=== PATIENT | female | born 1935 | race Hispanic/Latino ===

== ENCOUNTER 2016-03-03 10:25 | Outpatient (CLI) | payer MEDICARE ==
[2016-03-03] MEDS ORDERED: XYLOCAINE TOPICAL 4% TP ONE ×2 (10:45→15:21)
== END 2016-03-03 10:26 | disposition home or self-care (01) ==
LOC: WOUND 10:25
PROVIDERS: ATTEND Orthopaedic Surgery
DX: I70.248 Atherosclerosis of native arteries of left leg with ulceration of other part of lower leg (principal); L97.821 Non-pressure chronic ulcer of other part of left lower leg limited to breakdown of skin; B95.62 Methicillin resistant Staphylococcus aureus infection as the cause of diseases classified elsewhere; I10 Essential (primary) hypertension; I25.2 Old myocardial infarction; J43.9 Emphysema, unspecified

== ENCOUNTER 2016-03-17 10:47 | Outpatient (CLI) | payer MEDICARE ==
[~2016-03-17 10:47] MED LIST: XYLOCAINE TOPICAL 2% ONE
[2016-03-17] MEDS ORDERED: XYLOCAINE TOPICAL 2% TP ONE (12:20)
== END 2016-03-17 10:48 | disposition home or self-care (01) ==
LOC: WOUND 10:47
PROVIDERS: ATTEND Orthopaedic Surgery
DX: I70.248 Atherosclerosis of native arteries of left leg with ulceration of other part of lower leg (principal); L97.821 Non-pressure chronic ulcer of other part of left lower leg limited to breakdown of skin; B35.1 Tinea unguium; I25.2 Old myocardial infarction; I10 Essential (primary) hypertension; I73.9 Peripheral vascular disease, unspecified; J43.9 Emphysema, unspecified

== ENCOUNTER 2016-04-21 10:31 | Outpatient (CLI) | payer MEDICARE ==
[2016-04-21] MEDS ORDERED: XYLOCAINE TOPICAL 4% TP ONE ×2 (10:34→11:09)
== END 2016-04-21 10:32 | disposition home or self-care (01) ==
LOC: WOUND 10:31
PROVIDERS: ATTEND Internal Medicine
DX: I70.248 Atherosclerosis of native arteries of left leg with ulceration of other part of lower leg (principal); L97.822 Non-pressure chronic ulcer of other part of left lower leg with fat layer exposed; L89.622 Pressure ulcer of left heel, stage 2; B35.1 Tinea unguium; I10 Essential (primary) hypertension; K21.0 Gastro-esophageal reflux disease with esophagitis; I20.8 Other forms of angina pectoris; I73.9 Peripheral vascular disease, unspecified; I25.2 Old myocardial infarction; J43.9 Emphysema, unspecified; G62.9 Polyneuropathy, unspecified

== ENCOUNTER 2016-04-28 10:25 | Outpatient (CLI) | payer MEDICARE ==
[2016-04-28] MEDS ORDERED: XYLOCAINE TOPICAL 4% TP ONE ×2 (10:30→11:06)
== END 2016-04-28 10:26 | disposition home or self-care (01) ==
LOC: WOUND 10:25
PROVIDERS: ATTEND Internal Medicine
DX: I87.312 Chronic venous hypertension (idiopathic) with ulcer of left lower extremity (principal); I70.248 Atherosclerosis of native arteries of left leg with ulceration of other part of lower leg; L97.822 Non-pressure chronic ulcer of other part of left lower leg with fat layer exposed; I70.238 Atherosclerosis of native arteries of right leg with ulceration of other part of lower leg; L97.812 Non-pressure chronic ulcer of other part of right lower leg with fat layer exposed; L89.622 Pressure ulcer of left heel, stage 2; B35.1 Tinea unguium; K21.0 Gastro-esophageal reflux disease with esophagitis; I73.9 Peripheral vascular disease, unspecified; I25.2 Old myocardial infarction; J43.9 Emphysema, unspecified; G62.9 Polyneuropathy, unspecified
CPT/HCPCS: 11055

== ENCOUNTER 2016-05-12 10:20 | Outpatient (CLI) | payer MEDICARE ==
[2016-05-12] MEDS ORDERED: XYLOCAINE TOPICAL 4% TP ONE ×2 (10:34→12:00)
== END 2016-05-12 10:21 | disposition home or self-care (01) ==
LOC: WOUND 10:20
PROVIDERS: ATTEND Internal Medicine
DX: I87.312 Chronic venous hypertension (idiopathic) with ulcer of left lower extremity (principal); I70.203 Unspecified atherosclerosis of native arteries of extremities, bilateral legs; L97.822 Non-pressure chronic ulcer of other part of left lower leg with fat layer exposed; K21.0 Gastro-esophageal reflux disease with esophagitis; I20.8 Other forms of angina pectoris; B35.1 Tinea unguium; I73.9 Peripheral vascular disease, unspecified; I25.2 Old myocardial infarction; J43.9 Emphysema, unspecified; G62.9 Polyneuropathy, unspecified

== ENCOUNTER 2016-05-26 10:30 | Outpatient (CLI) | payer MEDICARE ==
[2016-05-26] MEDS ORDERED: XYLOCAINE TOPICAL 4% TP ONE ×2 (10:56→11:30)
== END 2016-05-26 10:31 | disposition home or self-care (01) ==
LOC: WOUND 10:30
PROVIDERS: ATTEND Podiatrist
DX: I87.312 Chronic venous hypertension (idiopathic) with ulcer of left lower extremity (principal); L97.821 Non-pressure chronic ulcer of other part of left lower leg limited to breakdown of skin; I70.203 Unspecified atherosclerosis of native arteries of extremities, bilateral legs; L89.622 Pressure ulcer of left heel, stage 2; I10 Essential (primary) hypertension; I20.8 Other forms of angina pectoris; K21.0 Gastro-esophageal reflux disease with esophagitis; I73.9 Peripheral vascular disease, unspecified; I25.2 Old myocardial infarction; J43.9 Emphysema, unspecified
CPT/HCPCS: 11042; G0463

== ENCOUNTER 2016-06-09 10:14 | Outpatient (CLI) | payer MEDICARE ==
[2016-06-09] MEDS ORDERED: XYLOCAINE TOPICAL 2% ONE (10:25)
[2016-06-09] MEDS ORDERED: XYLOCAINE TOPICAL 2% TP ONE (15:02)
== END 2016-06-09 10:15 | disposition home or self-care (01) ==
LOC: WOUND 10:14
PROVIDERS: ATTEND Internal Medicine
DX: I87.312 Chronic venous hypertension (idiopathic) with ulcer of left lower extremity (principal); I70.203 Unspecified atherosclerosis of native arteries of extremities, bilateral legs; L97.822 Non-pressure chronic ulcer of other part of left lower leg with fat layer exposed; I28.0 Arteriovenous fistula of pulmonary vessels; K21.0 Gastro-esophageal reflux disease with esophagitis; I73.9 Peripheral vascular disease, unspecified; I25.2 Old myocardial infarction; J43.9 Emphysema, unspecified; G62.9 Polyneuropathy, unspecified
CPT/HCPCS: C5271; Q4102

== ENCOUNTER 2016-06-16 10:20 | Outpatient (CLI) | payer MEDICARE ==
[2016-06-16] MEDS ORDERED: XYLOCAINE TOPICAL 4% TP ONE ×2 (10:46→11:57)
== END 2016-06-16 10:21 | disposition home or self-care (01) ==
LOC: WOUND 10:20
PROVIDERS: ATTEND Internal Medicine
DX: I87.312 Chronic venous hypertension (idiopathic) with ulcer of left lower extremity (principal); L97.821 Non-pressure chronic ulcer of other part of left lower leg limited to breakdown of skin; L89.622 Pressure ulcer of left heel, stage 2; I70.203 Unspecified atherosclerosis of native arteries of extremities, bilateral legs; I20.8 Other forms of angina pectoris; K21.0 Gastro-esophageal reflux disease with esophagitis; I73.9 Peripheral vascular disease, unspecified; I25.2 Old myocardial infarction; J43.9 Emphysema, unspecified

== ENCOUNTER 2016-06-23 10:20 | Outpatient (CLI) | payer MEDICARE ==
[2016-06-23] MEDS ORDERED: XYLOCAINE TOPICAL 4% TP ONE ×2 (10:22→12:28)
== END 2016-06-23 10:21 | disposition home or self-care (01) ==
LOC: WOUND 10:20
PROVIDERS: ATTEND Surgery
DX: I87.2 Venous insufficiency (chronic) (peripheral) (principal); L89.622 Pressure ulcer of left heel, stage 2; I87.312 Chronic venous hypertension (idiopathic) with ulcer of left lower extremity; L97.822 Non-pressure chronic ulcer of other part of left lower leg with fat layer exposed; L89.892 Pressure ulcer of other site, stage 2; I70.203 Unspecified atherosclerosis of native arteries of extremities, bilateral legs; I73.9 Peripheral vascular disease, unspecified; I25.2 Old myocardial infarction; J43.9 Emphysema, unspecified; K21.9 Gastro-esophageal reflux disease without esophagitis; G62.9 Polyneuropathy, unspecified
CPT/HCPCS: 97597

== ENCOUNTER 2016-06-30 10:24 | Outpatient (CLI) | payer MEDICARE ==
[2016-06-30] MEDS ORDERED: XYLOCAINE TOPICAL 4% TP ONE ×2 (10:36→16:22)
== END 2016-06-30 10:25 | disposition home or self-care (01) ==
LOC: WOUND 10:24
PROVIDERS: ATTEND Surgery
DX: L89.622 Pressure ulcer of left heel, stage 2 (principal); I87.2 Venous insufficiency (chronic) (peripheral); I87.312 Chronic venous hypertension (idiopathic) with ulcer of left lower extremity; L97.822 Non-pressure chronic ulcer of other part of left lower leg with fat layer exposed; I70.203 Unspecified atherosclerosis of native arteries of extremities, bilateral legs; I73.9 Peripheral vascular disease, unspecified; I25.2 Old myocardial infarction; J43.9 Emphysema, unspecified; G62.9 Polyneuropathy, unspecified; K21.9 Gastro-esophageal reflux disease without esophagitis
CPT/HCPCS: 97597

== ENCOUNTER 2016-07-07 10:23 | Outpatient (CLI) | payer MEDICARE ==
[2016-07-07] MEDS ORDERED: XYLOCAINE TOPICAL 4% TP ONE ×2 (10:27→14:25)
== END 2016-07-07 10:24 | disposition home or self-care (01) ==
LOC: WOUND 10:23
PROVIDERS: ATTEND Internal Medicine
DX: I87.312 Chronic venous hypertension (idiopathic) with ulcer of left lower extremity (principal); L97.822 Non-pressure chronic ulcer of other part of left lower leg with fat layer exposed; I70.203 Unspecified atherosclerosis of native arteries of extremities, bilateral legs; K21.0 Gastro-esophageal reflux disease with esophagitis; I20.8 Other forms of angina pectoris; I73.9 Peripheral vascular disease, unspecified; I25.2 Old myocardial infarction; J43.9 Emphysema, unspecified; G62.9 Polyneuropathy, unspecified

== ENCOUNTER 2016-07-14 10:32 | Outpatient (CLI) | payer MEDICARE ==
[2016-07-14] MEDS ORDERED: XYLOCAINE TOPICAL 4% TP ONE ×2 (10:46→12:00)
== END 2016-07-14 10:33 | disposition home or self-care (01) ==
LOC: WOUND 10:32
PROVIDERS: ATTEND Surgery
DX: I87.312 Chronic venous hypertension (idiopathic) with ulcer of left lower extremity (principal); L97.822 Non-pressure chronic ulcer of other part of left lower leg with fat layer exposed; I70.203 Unspecified atherosclerosis of native arteries of extremities, bilateral legs; I73.9 Peripheral vascular disease, unspecified; I25.2 Old myocardial infarction; J43.9 Emphysema, unspecified; G62.9 Polyneuropathy, unspecified; K21.9 Gastro-esophageal reflux disease without esophagitis

== ENCOUNTER 2016-07-21 10:31 | Outpatient (CLI) | payer MEDICARE ==
[2016-07-21] MEDS ORDERED: XYLOCAINE TOPICAL 4% TP ONE ×2 (10:53→11:00)
== END 2016-07-21 10:32 | disposition home or self-care (01) ==
LOC: WOUND 10:31
PROVIDERS: ATTEND Surgery
DX: I87.312 Chronic venous hypertension (idiopathic) with ulcer of left lower extremity (principal); L97.822 Non-pressure chronic ulcer of other part of left lower leg with fat layer exposed; I70.203 Unspecified atherosclerosis of native arteries of extremities, bilateral legs; I73.9 Peripheral vascular disease, unspecified; I25.2 Old myocardial infarction; J43.9 Emphysema, unspecified; G62.9 Polyneuropathy, unspecified; K21.9 Gastro-esophageal reflux disease without esophagitis

== ENCOUNTER 2016-07-28 10:35 | Outpatient (CLI) | payer MEDICARE ==
[2016-07-28] MEDS ORDERED: XYLOCAINE TOPICAL 4% TP ONE ×2 (10:58→11:07)
== END 2016-07-28 10:36 | disposition home or self-care (01) ==
LOC: WOUND 10:35
PROVIDERS: ATTEND Surgery
DX: I87.312 Chronic venous hypertension (idiopathic) with ulcer of left lower extremity (principal); L97.822 Non-pressure chronic ulcer of other part of left lower leg with fat layer exposed; I70.203 Unspecified atherosclerosis of native arteries of extremities, bilateral legs; I73.9 Peripheral vascular disease, unspecified; I10 Essential (primary) hypertension; I25.2 Old myocardial infarction; J43.9 Emphysema, unspecified; G62.9 Polyneuropathy, unspecified; K21.9 Gastro-esophageal reflux disease without esophagitis
CPT/HCPCS: 29580

== ENCOUNTER 2016-08-04 10:30 | Outpatient (CLI) | payer MEDICARE ==
[2016-08-04] MEDS ORDERED: XYLOCAINE TOPICAL 4% TP ONE ×2 (11:27→15:28)
== END 2016-08-04 10:31 | disposition home or self-care (01) ==
LOC: WOUND 10:30
PROVIDERS: ATTEND Surgery
DX: I87.312 Chronic venous hypertension (idiopathic) with ulcer of left lower extremity (principal); L97.822 Non-pressure chronic ulcer of other part of left lower leg with fat layer exposed; I70.203 Unspecified atherosclerosis of native arteries of extremities, bilateral legs; I73.9 Peripheral vascular disease, unspecified; I25.2 Old myocardial infarction; J43.9 Emphysema, unspecified; G62.9 Polyneuropathy, unspecified; K21.9 Gastro-esophageal reflux disease without esophagitis

== ENCOUNTER 2016-08-18 10:28 | Outpatient (CLI) | payer MEDICARE ==
[2016-08-18] MEDS ORDERED: XYLOCAINE TOPICAL 4% TP ONE (10:38)
== END 2016-08-18 10:29 | disposition home or self-care (01) ==
LOC: WOUND 10:28
PROVIDERS: ATTEND Surgery
DX: I87.312 Chronic venous hypertension (idiopathic) with ulcer of left lower extremity (principal); L97.822 Non-pressure chronic ulcer of other part of left lower leg with fat layer exposed; I70.203 Unspecified atherosclerosis of native arteries of extremities, bilateral legs; E11.51 Type 2 diabetes mellitus with diabetic peripheral angiopathy without gangrene; E11.40 Type 2 diabetes mellitus with diabetic neuropathy, unspecified; I25.2 Old myocardial infarction; J43.9 Emphysema, unspecified; K21.9 Gastro-esophageal reflux disease without esophagitis

== ENCOUNTER 2016-08-25 10:31 | Outpatient (CLI) | payer MEDICARE ==
[2016-08-25] MEDS ORDERED: XYLOCAINE TOPICAL 4% TP ONE (10:58)
== END 2016-08-25 10:32 | disposition home or self-care (01) ==
LOC: WOUND 10:31
PROVIDERS: ATTEND Surgery
DX: I87.312 Chronic venous hypertension (idiopathic) with ulcer of left lower extremity (principal); I70.203 Unspecified atherosclerosis of native arteries of extremities, bilateral legs; L97.822 Non-pressure chronic ulcer of other part of left lower leg with fat layer exposed; I73.9 Peripheral vascular disease, unspecified; I25.2 Old myocardial infarction; J43.9 Emphysema, unspecified; G62.9 Polyneuropathy, unspecified; K21.9 Gastro-esophageal reflux disease without esophagitis; Z90.710 Acquired absence of both cervix and uterus

== ENCOUNTER 2016-09-01 10:14 | Outpatient (CLI) | payer MEDICARE ==
[2016-09-01] MEDS ORDERED: XYLOCAINE TOPICAL 4% TP ONE ×2 (10:51→16:42)
== END 2016-09-01 10:15 | disposition home or self-care (01) ==
LOC: WOUND 10:14
PROVIDERS: ATTEND Surgery
DX: I87.312 Chronic venous hypertension (idiopathic) with ulcer of left lower extremity (principal); L97.822 Non-pressure chronic ulcer of other part of left lower leg with fat layer exposed; I70.203 Unspecified atherosclerosis of native arteries of extremities, bilateral legs; I73.9 Peripheral vascular disease, unspecified; J43.9 Emphysema, unspecified; K21.9 Gastro-esophageal reflux disease without esophagitis; G62.9 Polyneuropathy, unspecified; I25.2 Old myocardial infarction; Z90.710 Acquired absence of both cervix and uterus

== ENCOUNTER 2016-09-08 10:16 | Outpatient (CLI) | payer MEDICARE ==
[2016-09-08] MEDS ORDERED: XYLOCAINE TOPICAL 4% TP ONE ×2 (10:37→16:25)
== END 2016-09-08 10:17 | disposition home or self-care (01) ==
LOC: WOUND 10:16
PROVIDERS: ATTEND Surgery
DX: I87.312 Chronic venous hypertension (idiopathic) with ulcer of left lower extremity (principal); L97.822 Non-pressure chronic ulcer of other part of left lower leg with fat layer exposed; I73.9 Peripheral vascular disease, unspecified; I10 Essential (primary) hypertension; I25.2 Old myocardial infarction; J43.9 Emphysema, unspecified; G62.9 Polyneuropathy, unspecified; K21.9 Gastro-esophageal reflux disease without esophagitis; L97.521 Non-pressure chronic ulcer of other part of left foot limited to breakdown of skin; Z90.710 Acquired absence of both cervix and uterus

== ENCOUNTER 2016-09-15 10:14 | Outpatient (CLI) | payer MEDICARE ==
[2016-09-15] MEDS ORDERED: XYLOCAINE TOPICAL 4% TP ONE ×2 (10:42→11:00)
== END 2016-09-15 10:15 | disposition home or self-care (01) ==
LOC: WOUND 10:14
PROVIDERS: ATTEND Surgery
DX: I87.312 Chronic venous hypertension (idiopathic) with ulcer of left lower extremity (principal); L97.822 Non-pressure chronic ulcer of other part of left lower leg with fat layer exposed; I73.9 Peripheral vascular disease, unspecified; J43.9 Emphysema, unspecified; G62.9 Polyneuropathy, unspecified; K21.9 Gastro-esophageal reflux disease without esophagitis; Z90.710 Acquired absence of both cervix and uterus

== ENCOUNTER 2016-09-22 10:18 | Outpatient (CLI) | payer MEDICARE ==
[2016-09-22] MEDS ORDERED: XYLOCAINE TOPICAL 4% TP ONE ×2 (10:45→16:00)
[2016-09-22] MEDS ORDERED: SILVER NITRATE TP ONE ×2 (11:25→16:00)
== END 2016-09-22 10:19 | disposition home or self-care (01) ==
LOC: WOUND 10:18
PROVIDERS: ATTEND Surgery
DX: I87.312 Chronic venous hypertension (idiopathic) with ulcer of left lower extremity (principal); L97.822 Non-pressure chronic ulcer of other part of left lower leg with fat layer exposed; I70.203 Unspecified atherosclerosis of native arteries of extremities, bilateral legs; I73.9 Peripheral vascular disease, unspecified; I10 Essential (primary) hypertension; I25.2 Old myocardial infarction; J43.9 Emphysema, unspecified; G62.9 Polyneuropathy, unspecified; K21.9 Gastro-esophageal reflux disease without esophagitis; Z90.710 Acquired absence of both cervix and uterus

== ENCOUNTER 2016-09-29 10:25 | Outpatient (CLI) | payer MEDICARE ==
[2016-09-29] MEDS ORDERED: XYLOCAINE TOPICAL 4% TP ONE (10:30)
== END 2016-09-29 10:26 | disposition home or self-care (01) ==
LOC: WOUND 10:25
PROVIDERS: ATTEND Surgery
DX: I87.312 Chronic venous hypertension (idiopathic) with ulcer of left lower extremity (principal); L97.822 Non-pressure chronic ulcer of other part of left lower leg with fat layer exposed; L97.521 Non-pressure chronic ulcer of other part of left foot limited to breakdown of skin; I73.9 Peripheral vascular disease, unspecified; I25.2 Old myocardial infarction; J43.9 Emphysema, unspecified; G62.9 Polyneuropathy, unspecified; K21.9 Gastro-esophageal reflux disease without esophagitis; Z90.710 Acquired absence of both cervix and uterus

== ENCOUNTER 2016-10-13 10:20 | Outpatient (CLI) | payer MEDICARE | END 2016-10-13 10:21 | disposition home or self-care (01) | LOC: WOUND 10:20 | PROVIDERS: ATTEND Surgery | DX: I87.312 Chronic venous hypertension (idiopathic) with ulcer of left lower extremity (principal); L97.822 Non-pressure chronic ulcer of other part of left lower leg with fat layer exposed; I70.203 Unspecified atherosclerosis of native arteries of extremities, bilateral legs; I73.9 Peripheral vascular disease, unspecified; I25.2 Old myocardial infarction; J43.9 Emphysema, unspecified; G62.9 Polyneuropathy, unspecified; K21.9 Gastro-esophageal reflux disease without esophagitis; Z90.710 Acquired absence of both cervix and uterus | CPT/HCPCS: 99213; G0463 ==

== ENCOUNTER 2019-02-12 14:06 | Outpatient (CLI) | payer MEDICARE ==
--- NOTE | 2019-02-12 17:06 | XRay Report ---
Thoracic spine 3 views Indication: DECREASED MOBILITY Findings: There is superior plate compression and a midthoracic vertebra. This is age indeterminate. There is mild spondylitic change in the mid and upper thoracic spine Signer Name: Jonas Dick MD Signed: 02/12/2019 5:02 PM Workstation Name: [id number]
--- NOTE | 2019-02-12 17:12 | XRay Report ---
BILATERAL HIP RADIOGRAPHS 4 VIEWS INDICATION / CLINICAL INFORMATION: DECREASED MOBILITY COMPARISON: None available. FINDINGS: BONES / JOINT(S): No acute fracture or subluxation. There is mild degenerative change in the hip join ts. SOFT TISSUES: No significant abnormality. ADDITIONAL FINDINGS: There is subjective osteopenia. Signer Name: Jonas Dick MD Signed: 02/12/2019 5:08 PM Workstation Name: [email or web address]
--- NOTE | 2019-02-12 17:13 | XRay Report ---
LEFT SHOULDER 3 VIEWS INDICATION / CLINICAL INFORMATION: DECREASED MOBILITY COMPARISON: None available. FINDINGS: BONES / JOINT(S): No acute fracture or subluxation. There is mild degenerative change in the glenohum eral joint. SOFT TISSUES: No significant abnormality. ADDITIONAL FINDINGS: There is subjective osteopenia. Signer Name: Jonas Dick MD Signed: 02/12/2019 5:09 PM Workstation Name: [id number]
--- NOTE | 2019-02-12 17:15 | XRay Report ---
LUMBAR SPINE 3 VIEWS INDICATION: DECREASED MOBILITY COMPARISON: None. FINDINGS: There are superior endplate compression fractures of L1, L4, and L5. There is an approximate 25% loss of height of L1 an approximate 50% height of L4 and 50-75% loss of height of L5. These are age indet erminate. Atherosclerotic calcifications are noted in the aorta and common iliac arteries. There is subjective osteopenia. Signer Name: Jonas Dick MD Signed: 02/12/2019 5:11 PM Workstation Name: [email or web address]
--- NOTE | 2019-02-12 17:16 | XRay Report ---
PELVIS ONE VIEW INDICATION / CLINICAL INFORMATION: DECREASED MOBILITY COMPARISON: None available. FINDINGS: BONES / JOINT(S): No acute fracture or subluxation. There is degenerative change in the hip joints. SOFT TISSUES: No significant abnormality. ADDITIONAL FINDINGS: There is subjective osteopenia. There is some dystrophic calcification or ossifi cation in the soft tissue of the left buttock Signer Name: Jonas Dick MD Signed: 02/12/2019 5:11 PM Workstation Name: [id number]
--- NOTE | 2019-02-12 17:17 | XRay Report ---
Cervical spine 5 views Indication: DECREASED MOBILITY Findings: There is kyphosis of the upper thoracic/lower cervical spine. No subluxation is seen. Prevertebral so ft tissues are unremarkable. No fracture is seen. Signer Name: Jonas Dick MD Signed: 02/12/2019 5:13 PM Workstation Name: [id number]
== END 2019-02-12 14:07 | disposition home or self-care (01) ==
LOC: SPVIMAG 14:06
PROVIDERS: ATTEND Internal Medicine
DX: M47.814 Spondylosis without myelopathy or radiculopathy, thoracic region (principal); M17.0 Bilateral primary osteoarthritis of knee; M19.012 Primary osteoarthritis, left shoulder; M85.88 Other specified disorders of bone density and structure, other site; I70.0 Atherosclerosis of aorta; E88.89 Other specified metabolic disorders; W19.XXXA Unspecified fall, initial encounter
CPT/HCPCS: 72040; 72072; 72100; 72170; 73521